=== PATIENT | male | born 1995 | race Caucasian/White ===

== ENCOUNTER 2025-10-06 09:28 | Emergency (ER) | payer OTHER, SELFPAY ==
--- NOTE | ~2025-10-06 | XR_ITS ---
EXAMINATION: XR CHEST CLINICAL INFORMATION: weakness COMPARISON: 09/21/2017. TECHNIQUE: 2 views of the chest were obtained. FINDINGS: The cardiac, hilar, and mediastinal contours are normal. The lungs are clear bilaterally. There is no pneumothorax or pleural effusion. There is no focal osseous or soft tissue abnormality. XR/XR chest 2V IMPRESSION: No active pulmonary disease. Electronically signed by: Gómez Enrique MD 10/06/2025 11:17 AM [facility] [place]
[2025-10-06 10:07] VITALS: BP 135/71; PULSE 88; RESP 16; TEMP 36.7; O2SAT 97
--- NOTE | 2025-10-06 10:08 | ED_ITS ---
HPI - Abdominal Pain General Chief Complaint: GI Bleed Stated Complaint: coffee ground vomit, headache Time Seen by Provider: 10/06/25 10:41 Source: patient Mode of arrival: ambulatory Limitations: no limitations History of Present Illness ED Provider: HPI narrative: 29-year-old male reports history of GI bleed back in 2016, and he reported he had GI bleed when he was in the in 2012, upon further questioning turned out that patient never had endoscopies and likely they have hematemesis which was not massive as there were no interventions, he reports being at work and vomiting coffee-ground emesis, no obvious blood clots, prior to that reports decreased p.o. intake, however yesterday ate a pasta. Related Data Previous Rx's ?Medication ?Instructions ?Recorded omeprazole 40 mg capsule,delayed 40 mg PO DAILY #30 ca ps 10/06/25 release sucralfate 1 gram tablet (Carafate) 1 g PO Q6H 7 days #28 tabs 10/06/25 Allergies Allergy/AdvReac Type Severity Reaction Status Date / Time No Known Allergies (No Known Allergy Verified 10/06/25 10:09 Allergies*) Review of Systems Constitutional: Reports as per [facility] Social History Social History Advance Directives: No Advance Directives Information Provided: Yes Physical Exam ED Exam Exam: ?General: ??looks age appropriate ?CV: RRR, no obvious murmurs appreciated ?Resp: ?No wheezing rales rhonchi no stridor moving air well Abd: ?Bowel sounds are present, minimal epigastric tenderness no rebound no rigidity MSK: FROM, strength 5/5 all extremities Skin: Warm, dry, intact, no jaundice ?Neuro: ?Alert and oriented x3, moving upper and lower extremities symmetrically, no obvious facial asymmetry noted, cranial nerves 2-12 intact Vital Signs: Vital Signs - 24 hr 10/06/25 10:07 Temperature 98.1 F Pulse Rate 88 Respiratory Rate 16 Blood Pressure 135/71 Pulse Oximetry 97 Oxygen Delivery Method Room Air BMI result Body Mass Index 3.5 Course Course Course Narrative: This is a Rapid Medical Exam performed in triage by Gissell Olmos PA-C. Full HPI, ROS and PE to be performed by primary ED provider. 29 yo M presenting to the ED c/o feeling generally unwell, abdominal pain, LINO, & coffee ground emesis x this AM. Admits to history of GI bleed/ulcers in the past PE: NAD, nontoxic appearing, ambulating with steady gait. Vital signs stable Plan: Labs, UA, viral testing Medical Decision Making Medical Decision Making [facility] Narrative: 11:00 AM 10/06/2025 (Dr. Sky Nagy): After discussing with the patient his prior reports of GI bleeding which would be highly unusual given his age it sounds like he did have episodes of hematemesis which is not unusual in a young individual but he has never had any type of intervention such as endoscopy to suggest that he has had significant bleeding during give 2 prior episodes in his past, he reports decreased p.o. intake for the past 2 days does endorse eating pasta yesterday however, otherwise his abdominal exam eyes fairly benign epigastric tenderness, vital signs are stable, we will check his H&H, we will obtain chest x-ray to make sure there was no evidence of Boerhaave syndrome, I spoke to the patient that if someone describes coffee-ground emesis it does not really mean much in terms of suggesting of a GI bleed as mostly emesis we will have bilious/coffee-ground appearance and I reassured him that it does not mean that he is having massive bleeding. Differential Diagnosis Differential Diagnoses: The differential diagnosis associated with the presentation includes (Anyi-Hernandez tears, pancreatitis, hepatitis, gastritis, cholangitis, choledocholithiasis, Boerhaave syndrome) Admission/Observation Consideration of admission/observation: Escalation of care including admission/observation considered Lab Data [facility] Lab Attestation statement: I reviewed the patient's lab results. 10/06/25 10:32 10/06/25 10:57 Labs: Lab Results 10/06/25 10/06/25 Range/Units 10:32 10:57 WBC 6.5 (4.8-10.8) X10*3/uL RBC 5.86 H (4.60-5.80) X10*6/uL Hgb 15.8 (14.0-18.0) g/dl Hct 46.9 (42.0-52.0) % MCV 80.0 (80.0-98.0) fL MCH 27.0 (27.0-33.0) pg MCHC 33.7 (31.0-36.0) g/dl RDW 13.2 (11.0-16.0) % Plt Count 228 (160-400) X10*3/uL MPV 9.3 L (9.4-12.4) fL Immature Gran % (Auto) 0.3 (0.0-0.4) % Neut % (Auto) 41.4 L (45-73) % Lymph % (Auto) 39.1 (20-40) % [place] % (Auto) 15.5 H (2-11) % Eos % (Auto) 3.1 (0-4) % Baso % (Auto) 0.6 (0-2) % Lymph # (Auto) 2.5 (1.2-4.9) X10*3/uL [place] # (Auto) 1.0 (0.1-1.2) X10*3/uL Eos # (Auto) 0.2 (0.0-0.4) X10*3/uL Baso # (Auto) 0.0 (0.0-0.2) X10*3/uL Abs Immat Gran (auto) 0.02 (0.00-0.03) X10*3/uL Absolute Neuts (auto) 2.7 (2.0-8.3) x10*3/uL Absolute Nucleated RBC 0.000 (0.0-0.012) X10*3/uL Nucleated RBC % (auto) 0.0 (0.0-0.2) /100WBC PT 13.7 H (11.2-13.5) SEC INR 1.1 (0.9-1.1) Sodium 139 139 (135-145) mmol/L Potassium 4.2 4.0 (3.3-5.1) mmol/L Chloride 104 105 (96-108) mmol/L Carbon Dioxide 27 28 (22-29) mmol/L Anion Gap 12 10 L (12-20) BUN 9 9 (9-16) mg/dL Creatinine 1.06 0.94 (0.5-1.4) mg/dL Estim Creat Clear Calc 17.2 19.5 Estimated GFR > 60 > 60 Random Glucose 84 84 (60-115) mg/dL Calcium 8.9 8.8 (8.4-10.2) mg/dL Magnesium 2.2 (1.6-2.6) mg/dL Total Bilirubin 0.4 0.4 (0.0-1.0) mg/dL Direct Bilirubin 0.2 (0.0-0.5) mg/dL AST 30 30 (5-37) U/L ALT 21 23 (0-40) U/L Alkaline Phosphatase 71 68 (39-117) U/L Total Protein 7.7 7.5 (6.5-8.0) g/dL Albumin 4.5 4.5 (3.5-5.0) g/dL Lipase 14 14 (8-78) U/L Influenza Type A (PCR) NEGATIVE (Negative) Influenza Type B (PCR) NEGATIVE (Negative) RSV RNA Qual (PCR) NEGATIVE (Negative) SARS-CoV-2 RNA (RT-PCR) NEGATIVE (Negative) Medications Administered Discontinued Medications Generic Name Dose Route Start Last Admin Trade Name Freq PRN Reason Stop Dose Admin Al Hydroxide/Mg Hydroxide 15 ml 10/06/25 10:51 10/06/25 11:08 Magnesium Hydrox/Alum Hydrox 30 Ml Oral.Susp PO 10/06/25 10:52 15 ml ONCE ONE Administration Famotidine 20 mg 10/06/25 10:51 10/06/25 11:07 Famotidine/Pf 20 Mg/2 Ml Vial IVPUSH 10/06/25 10:52 20 mg ONCE ONE Administration Sodium Chloride 1,000 mls @ 999 mls/hr 10/06/25 11:00 10/06/25 11:07 Ns IV 10/06/25 12:00 999 mls/hr .Q1H1M YANDY Administration Ondansetron HCl 4 mg 10/06/25 10:51 10/06/25 11:07 Ondansetron Hcl 4 Mg/2 Ml Vial IVPUSH 10/06/25 10:52 4 mg ONCE ONE Administration Discharge Plan Discharge Clinical Impression: Nausea & vomiting, Coffee ground emesis Patient Disposition: Home, Self-Care Additional Instructions: As discussed coffee-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, however and reality most of the emesis is dark and coffee ground like appearing, with that said your workup has been reassuring, you are not anemic means you not losing blood, I did obtain a chest x-ray as well as viral swab all of which has been reassuring, continue with Carafate 1 pill 20 minutes before any meals for the next 1 week and use omeprazole, worsening symptoms concerns come back to the ER, I do suspect you have some underlying stomach issues and I recommend discussing with the PCP for potential Gastroenterology referral Prescriptions: New sucralfate [Carafate] 1 gram tablet 1 g PO Q6H 7 Days Qty: 28 0RF omeprazole 40 mg capsule,delayed release(DR/EC) 40 mg PO DAILY Qty: 30 0RF Stand Alone Forms: Work/School Release Print Language: Slovenian
[2025-10-06 10:41] LABS: MANUAL DIFF FLAG NO
[2025-10-06 10:42] LABS: Hematocrit 46.9 % (42.0-52.0); Hemoglobin 15.8 g/dl (14.0-18.0); Imm Gran Abs Auto 0.02 X10*3/uL (0.00-0.03); Imm Gran Pct Auto 0.3 % (0.0-0.4); Lymphocytes Absolute Auto 2.5 X10*3/uL (1.2-4.9); Mean Corpuscular HGB Conc 33.7 g/dl (31.0-36.0); Mean Corpuscular Hemoglobin 27.0 pg (27.0-33.0); Mean Corpuscular Volume 80.0 fL (80.0-98.0); NRBC Abs Auto 0.000 X10*3/uL (0.0-0.012); NRBC Pct Auto 0.0 /100WBC (0.0-0.2); Platelet Count 228 X10*3/uL (160-400); Red Blood Count 5.86 X10*6/uL (4.60-5.80); White Blood Count 6.5 X10*3/uL (4.8-10.8)
[2025-10-06 10:49] LABS: INTERNATIONAL NORM RATIO 1.1 (0.9-1.1); Prothrombin Time 13.7 SEC (11.2-13.5)
[2025-10-06 11:01] LABS: Alanine Aminotransferase 21 U/L (0-40); Albumin Level 4.5 g/dL (3.5-5.0); Alkaline Phosphatase 71 U/L (39-117); Anion Gap 12 (12-20); Aspartate Amino Transferase 30 U/L (5-37); Blood Urea Nitrogen 9 mg/dL (9-16); Calcium 8.9 mg/dL (8.4-10.2); Carbon Dioxide 27 mmol/L (22-29); Chloride 104 mmol/L (96-108); Creatinine Clr Calc Pharmacy 17.2; Estimated Glomerular Filt Rate > 60; Lipase 14 U/L (8-78); Magnesium 2.2 mg/dL (1.6-2.6); Potassium 4.2 mmol/L (3.3-5.1); Sodium 139 mmol/L (135-145); Total Protein 7.7 g/dL (6.5-8.0)
--- NOTE | 2025-10-06 11:02 | PC.NURSE ---
Patient presents to ED from work today with coffee ground emesis. Patient stated on 10/02 he began feeling unwell and started vomiting soon after that, This morning his vomiting became more severe and was black which prompted him to come here. Patient AOx4, NSR on monitor and VSS. #20 in left AC.
[2025-10-06] MEDS: Magnesium Hydrox/Alum Hydrox 30 ML ORAL.SUSP 15 ML PO (11:08)
[2025-10-06 11:27] LABS: Resp Syncy Virus RNA Qual PCR NEGATIVE (Negative); SARS COV2 PCR INHOUSE NEGATIVE (Negative)
[2025-10-06 11:28] LABS: Alanine Aminotransferase 23 U/L (0-40); Albumin Level 4.5 g/dL (3.5-5.0); Alkaline Phosphatase 68 U/L (39-117); Anion Gap 10 (12-20); Aspartate Amino Transferase 30 U/L (5-37); Blood Urea Nitrogen 9 mg/dL (9-16); Calcium 8.8 mg/dL (8.4-10.2); Carbon Dioxide 28 mmol/L (22-29); Chloride 105 mmol/L (96-108); Creatinine Clr Calc Pharmacy 19.5; Estimated Glomerular Filt Rate > 60; Lipase 14 U/L (8-78); Potassium 4.0 mmol/L (3.3-5.1); Sodium 139 mmol/L (135-145); Total Protein 7.5 g/dL (6.5-8.0)
[2025-10-06 13:02] VITALS: BP 115/79; PULSE 74; RESP 15; TEMP 36.6; O2SAT 97
--- OUTSIDE RECORDS SUMMARY | 2025-10-06 15:27 | XMS_ITS | Clinical Summary ---
Author Organization [facility] Address [address] [place] [address] Phone Care Team Providers Care Banquet Set Up Person Name Role Phone Adolfo Mcghee Primary Care Provid er Allergies No known active allergies Medications VRAYLAR 3 mg capsule 05/12/2021 Active hydrOXYzine (ATARAX) 25 MG tablet 05/12/2021 Active lamoTRIgine (LAMICTAL) 100 MG IMMEDIATE release tablet 05/12/2021 Active Active Problems No known active problems Social History Tobacco Use Types Packs/Day Years Used Date Smoking Tobacco: Former Smokeless Tobacco: Former Education Answer Date Recorded Are you interested in more education? Not on dory e 02/03/2023 Are you concerned about learning? Not on file 02/03/2023 No 02/03/2023 No 02/03/2023 Digital Access Answer Date Recorded No 03/04/2023 No 03/04/2023 No 03/04/2023 Reliable internet access at home? Not on file 03/04/2023 Device with a working camera? Not on file Sex and Gender Information Value Date Recorded Sex Assigned at Not on file Legal Sex Male 1:36 PM EDT Gender Identity Not on file Sexual Orientation Not on file Last Filed Vital Signs Vital Sign Reading Time Taken Comments Blood Pressure 121/77 07/11/2021 1:54 PM EDT Pulse 75 07/11/2021 1:54 PM EDT Temperature 36.9 C (98.4 F) 07/11/2021 1:54 PM EDT Respiratory Rate 18 07/11/2021 1:54 PM EDT Oxygen Saturation 99% 07/11/2021 1:54 PM EDT Inhaled Oxygen Concentration - - Weight 108.9 kg (240 lb) 07/11/2021 1:54 PM EDT Height - - Body Mass Index - - Plan of Treatment Health Maintenance Due Date Last Done Comments DEPRESSION SCREENING 2006 SMOKING Hx and SMOKELESS TOBACCO SCREENING 2007 HEPATITIS C SCREENING 2012 HIV ONE-TIME SCREENING (18-65 YEARS) 2012 Adult Td,Tdap Booster 09/24/2016 09/24/2006 INFLUENZA VACCINE (#1) 2025 9, 09/04/2018, 07/31/2017, Additional history exists COVID-19 VACCINE ( season) 2025 HIB VACCINES Completed 02/13/1996, 05/10, 03/26/1995, Additional history exists MENINGOCOCCAL VACCINES (ACWY) Aged Out 12/30/2007 No longer eligible based on patient's age to complete this topic PNEUMOCOCCAL VACCINES (0-49 years) Aged Out 08/26/2015 No longer eligible based on patient's age to complete this topic HEPATITIS A VACCINES Aged Out No long er eligible based on patient's age to complete this topic MENINGOCOCCAL VACCINES (B) Aged Out N o longer eligible based on patient's age to complete this topic Medical Devices Not on file Care Teams Banquet Set Up Person Relationship Specialty Start Date End Date Adolfo Mcghee PA PCP - General 07/11/21 Additional Source Comments The information contained in this document represents components of the legal health record. It is not the complete legal health record.[facility]
--- OUTSIDE RECORDS SUMMARY | 2025-10-06 15:27 | XMS_ITS | Encounter Summary ---
Author Organization [facility] Address [address] [place] [address] Phone Care Team Providers Care Nurse Practitioner Hospitalist Name Role Phone Kai Holcomb MD Primary Care Provider [phone] Encounter Details Date Type Department Care Team (Late st Contact Info) Description 05/24/2017 Conversion Encounter [facility] [place] [address] [place] [address] Social History Tobacco Use Types Packs/Day Years Used Date Smoking Tobacco: Former Comments:Former smoker Sex and Gender Information Value Date Recorded Sex Assigned at Not on file Legal Sex Male 4:46 PM EDT Gender Identity Not on file Sexual Orientation Not on file documented as of this encounter Plan of Treatment Not on file documented as of this encounter Visit Diagnoses Not on filedocumented in this encounter Care Teams Nurse Practitioner Hospitalist Relationship Specialty Start Date End Date Kai Holcomb MD [address] [place] [address] PCP - General 05/18/17 04/01/23 documented as of this encounter
--- OUTSIDE RECORDS SUMMARY | 2025-10-06 15:27 | XMS_ITS | Clinical Summary ---
Author Organization [facility] Address [address] [place] [address] Care Team Providers Care Extractor Operator Name Role Phone Bill Juarez Primary Care Provider [phone] Medical History Medical History Date Comments Bipolar disorder (CMS/HCC V2 4, CMS/HCC V28) 04/15/2019 DX:Bipolar disorder (HCC); C OMMENT: Lurasidone Epigastric pain 04/09/2019 DX:Epigastric pa in Hematemesis 03/26/2019 DX:Hematemesis Insomnia 04/15/2019 DX:Insomnia; COM MENT: Trazodone PRN Substance dependency (CMS/HC C V24, CMS/HCC V28) 04/15/2019 DX:Substance dependency ([facility] ); COMMENT: Amphetamine, Cannabis, hallucinogen, stimulant Weight loss 03/26/2019 DX:Weight loss Social History Tobacco Use Types Packs/Day Years Used Date Smoking Tobacco: Never Assessed Sex and Gender Information Value Date Recorded Sex Assigned at Not on file Legal Sex Male 8:05 AM EST Gender Identity Not on file Sexual Orientation Not on file Plan of Treatment Health Maintenance Due Date Last Done Comments DTaP,Tdap,and Td Vaccines (1 - Tdap) 2013 Hepatitis B Vaccines (1 of 3 - 19+ 3-dose series) 2013 HPV Vaccines (1 - 3-dose SCD M series) 2021 HIV Screening 2023 Hepatitis C Screening 2023 Social Influencers of Health Screening 2023 Depression Screening 10/08/2024 COVID-19 Vaccine ( - 2024-2 6 season) 2025 Influenza Vaccine (#1) 2025 RSV Immunization Adult Patie nts (1 - 1-dose 75+ series) 2069 HIB Vaccines Aged Out No longer eligi ble based on patient's age to complete this topic Hepatitis A Vaccines Aged Out No long er eligible based on patient's age to complete this topic IPV Vaccines Aged Out No longer eligi ble based on patient's age to complete this topic MMR Vaccines Aged Out No longer eligi ble based on patient's age to complete this topic Meningococcal ACWY Vaccine Aged Out N o longer eligible based on patient's age to complete this topic Meningococcal B Vaccine Aged Out No l onger eligible based on patient's age to complete this topic Pneumococcal Vaccine: Pediat rics (0 to 5 Years) and At-Risk Patients (6 to 49 Years) Aged Out No longer eligible b ased on patient's age to complete this topic RSV Immunization Patients Un adriel 20 months Aged Out No longer eligible b ased on patient's age to complete this topic Varicella Vaccines Aged Out No longer eligible based on patient's age to complete this topic Care Teams Extractor Operator Relationship Specialty Start Date End Date Bill Juarez PA [address] [place] [phone] PCP - General Internal Medicine 03/24/19
--- OUTSIDE RECORDS SUMMARY | 2025-10-06 15:27 | XMS_ITS | Encounter Summary ---
Author Organization [facility] Address [address] [place] [address] Phone Care Team Providers Care Promotional Demonstrator Name Role Phone Kai Holcomb MD Primary Care Provider [phone] Encounter Details Date Type Department Care Team (Late st Contact Info) Description 02/06/2012 Documentation EM Family Medicine [address] [place] [address] Family Medicine, Physician [address] [place] [address] Social History Tobacco Use Types Packs/Day Years [...] on filedocumented in this encounter Care Teams Promotional Demonstrator Relationship Specialty Start Date End Date Kai Holcomb MD [address] [place] [address] [place] [address] PCP - General 05/18/17 04/01/23 documented as of this encounter
--- OUTSIDE RECORDS SUMMARY | 2025-10-06 15:27 | XMS_ITS | Clinical Summary ---
Author Organization [facility] Address [address] [place] [address] Phone Care Team Providers Care Risk Developer Name Role Phone Unavailable Primary Care Provider Unavailabl e Immunizations Immunization Administration Dates Next Due DTP 05/07/1996, 5,03/26/1995, 995 DTaP 5 11/08/1999 H1N1 09/14/2009 Hep B, ped/adol 06/07/1995,01/24/1995,1994 Hib (PRP-T) 02/13/1996, 5,03/26/1995, 995 IPV 11/08/1999 Influenza Split 09/05/2012,09/07/2010 MMR 10/18/1998,11/08/1995 Meningococcal Conj (Menactra) MCV4P 12/30/2007 OPV 06/06/1995,03/26/1995,01/24/1995 Tdap 09/24/2006 Varicella 05/20/2009,02/06/1996 Family History Relation Name Status Comments Brother Brother: Epilep sy Other Family history of Diabetes mellitus, Family history of Obesity, Family history of Migraines, Family history of ADD/ADHD, Family history of Seizure disorder, Family history of Asthma Social History Tobacco Use Types Packs/Day Years Used Date Smoking Tobacco: Former Comments:Former smoker Sex and Gender Information Value Date Recorded Sex Assigned at Not on file Legal Sex Male 4:46 PM EDT Gender Identity Not on file Sexual Orientation Not on file Last Filed Vital Signs Vital Sign Reading Time Taken Comments Blood Pressure 112/70 09/05/2012 12:00 AM EST Pulse 76 02/06/2012 12:00 AM EDT Temperature 36.4 C (97.6 F) 09/05/2012 12:00 AM EST Respiratory Rate - - Oxygen Saturation - - Inhaled Oxygen Concentration - - Weight 83.9 kg (185 lb) 09/05/2012 12:00 AM EST Height 183.6 cm (6' 0.3 ) 09/05/2012 12:00 AM ES T Body Mass Index 24.88 09/05/2012 12:00 AM EST Plan of Treatment Health Maintenance Due Date Last Done Comments DTaP,Tdap,and Td Vaccines (7 - Td or Tdap) 09/24/2016 09/24/2006, 11/08/1999, 05/07/1996, Additional history exists HPV Vaccines (1 - 3-dose SCDM series) 2021 Influenza Vaccines (#1) 2025 09/05/2012, 09/07 COVID-19 Vaccine (2024- season) 2025 Hepatitis B Vaccines Completed 06/07/1995, 01/24/1995, 1994 HIB Vaccines Completed 02/13/1996, 05/10, 03/26/1995, Additional history exists MMR Vaccines Completed 10/18/1998, 11/08/1995 IPV Vaccines Completed 11/08/1999, 05/10, 03/26/1995, Additional history exists Meningococcal Vaccine Aged Out 12/30/2007 No doris martha eligible based on patient's age to complete this topic Varicella Vaccines Completed 05/20/2009, 02/06/1996 Hepatitis A Vaccines Aged Out No long er eligible based on patient's age to complete this topic Men B Vaccine Aged Out No longer elig ible based on patient's age to complete this topic Pneumococcal Vaccine Aged Out No long er eligible based on patient's age to complete this topic
== END 2025-10-06 13:03 | disposition home or self-care (01) ==
PROVIDERS: Physician Assistant; Emergency Provider Emergency Medicine
DX: R11.2 Nausea with vomiting, unspecified (principal); Z03.818 Encounter for observation for suspected exposure to other biological agents ruled out
CPT/HCPCS: 36415; 71046; 80048; 80053; 80076; 83690; 83735; 85025; 85610; 87637; 96361; 96374; 96375; 99284; J1308; J2405

== ENCOUNTER → 2025-10-06 10:51 | Outpatient (BNV) | payer OTHER, SELFPAY | PROVIDERS: Emergency Provider Emergency Medicine; Visit Provider Radiology Diagnostic Radiology | DX: R53.1 Weakness (principal) | CPT/HCPCS: 71046 ==